=== PATIENT | male | born 1985 | race Hispanic/Latino ===

== ENCOUNTER 2023-02-28 01:24 | Emergency (ER) | payer OTHER, SELFPAY ==
[~2023-02-28] VITALS: Ht 175.3 cm; Wt 104.3 kg
[2023-02-28 01:55] LABS: BASOPHILS # (AUTO) 0.05 K/uL (0.00-0.20); BASOPHILS % (AUTO) 0.5 % (0.0-5.0); EOSINOPHILS # (AUTO) 0.11 K/uL (0.00-0.70); HEMATOCRIT 48.3 % (42-54); IMMATURE GRANULOCYTE ABSOLUTE 0.02 K/uL (0-1); LYMPHOCYTES # (AUTO) 2.2 K/uL (1.0-4.8); LYMPHOCYTES % (AUTO) 20.5 % (21.0-51.0); MEAN CORPUSCULAR HEMOGLOBIN 30.5 pg (27.0-33.0); MEAN CORPUSCULAR HGB CONC 35.4 g/dL (32.0-36.0); MEAN CORPUSCULAR VOLUME 86.1 fL (79-99); MONOCYTES # (AUTO) 0.9 K/uL (0.1-1.0); NEUTROPHILS # (AUTO) 7.5 K/uL (1.8-7.7); NEUTROPHILS % (AUTO) 69.8 % (40.0-77.0); PLATELET COUNT (AUTO) 282 K/uL (130-400); RED BLOOD CELL COUNT(AUTO) 5.61 MIL/uL (4.50-6.20); RED CELL DISTRIBUTION WIDTH 11.9 % (11.0-15.5); WHITE BLOOD COUNT (AUTO) 10.7 K/uL (4.8-10.8)
[2023-02-28 01:57] LABS: APPEARANCE,URINE CLEAR (CLEAR); BILIRUBIN,URINE NEGATIVE (NEGATIVE); GLUCOSE, URINE (UA) NEGATIVE (NEGATIVE); KETONES,URINE NEGATIVE (NEGATIVE); LEUKOCYTE ESTERASE ,URINE NEGATIVE Leu/uL (NEGATIVE); NITRATE,URINE NEGATIVE (NEGATIVE); OCCULT BLOOD,URINE NEGATIVE (NEGATIVE); PROTEIN,URINE NEGATIVE (NEGATIVE); UROBILINOGEN,URINE 0.2 mg/dL (0.2-1.0)
[2023-02-28] MEDS ORDERED: LACTATED RINGERS 1000ML 1,000 ML IV ONE (02:00)
[2023-02-28] MEDS ORDERED: ONDANSETRON 4MG INJ IVP ONE (02:00)
[2023-02-28 02:02] LABS: COLOR,URINE LIGHT-YELLOW (YELLOW)
[2023-02-28 02:03] LABS: ADD UA MICROSCOPIC NO
[2023-02-28 02:04] LABS: CREATININE 1.1 mg/dL (0.5-1.5); POTASSIUM 3.4 mmol/L (3.5-5.1)
[2023-02-28 02:11] LABS: ALBUMIN 4.3 g/dL (3.5-5.0); BILIRUBIN,TOTAL 0.5 mg/dL (0.2-1.0); TOTAL PROTEIN, SERUM 8.6 g/dL (6.0-8.3)
[2023-02-28] MEDS ORDERED: IBUP-1493 PO (02:47)
[2023-02-28] MEDS ORDERED: ONDA-104 PO (02:47)
[2023-02-28] MEDS ORDERED: KETOROLAC 30MG VIAL (30MG/ML) IVP ONE (03:00)
[2023-02-28 03:24] VITALS: BP 121/74; PULSE 75; RESP 14; O2SAT 98
== END 2023-02-28 03:29 | disposition home or self-care (01) ==
LOC: EDH 01:24
DX: K80.20 Calculus of gallbladder without cholecystitis without obstruction (principal); I10 Essential (primary) hypertension; Z98.890 Other specified postprocedural states
CPT/HCPCS: 99285; 96374; 76705; 96361; 96375; 80053; 83690; 85025; 81003; 36415; J7120; J2405; J1885